=== PATIENT | female | born 1985 | race Caucasian/White ===

== ENCOUNTER 2022-01-02 12:51 | Inpatient (IN) | payer BC ==
[2022-01-02 14:17] LABS: Fetal Membranes Rupture No Membranes Rupture (No Rupture)
[2022-01-02] MEDS ORDERED: Misoprostol 200 MCG TAB PR PRN (14:56)
[2022-01-02] MEDS ORDERED: hydrALAZINE 20 MG/ML VIAL SLOW IVP PRN (14:56)
[2022-01-02] MEDS ORDERED: Promethazine HCl 25 MG/ML VIAL IM PRN ×2 (14:56→22:49)
[2022-01-02] MEDS ORDERED: Methylergonovine 0.2 MG/ML VIAL IM PRN (14:56)
[2022-01-02] MEDS ORDERED: Ondansetron PF 4 MG/2 ML Vial IVP PRN ×2 (14:56→22:49)
[2022-01-02] MEDS ORDERED: Carboprost 250 MCG/ML AMP IM PRN (14:56)
[2022-01-02] MEDS ORDERED: Lidocaine 1% (PF) 30 ML VIAL SC PRN (14:56)
[2022-01-02] MEDS ORDERED: Diphenoxylate HCl/Atropine Tablet PO PRN (14:56)
[2022-01-02] MEDS ORDERED: NS w/ Oxytocin 30 units 500 ML IV SCH ×2 (15:00)
[2022-01-02] MEDS ORDERED: Penicillin G 2.5 MILL.units 2.5 MILL.UNITS in Premix Bag 1 BAG IVPB SCH (15:00)
[2022-01-02] MEDS ORDERED: Penicillin G Potassium 5 MILL.UNITS in Sodium Chloride 0.9% 100 ML IVPB SCH (15:00)
[2022-01-02] MEDS ORDERED: Penicillin G Potassium 5 MILL.UNITS VIAL ONE (16:11)
[2022-01-02 16:34] LABS: Hemoglobin 12.4 g/dL (12.0-15.5); Mean Corpuscular HGB CONC 33.8 g/dL (32.0-36.0); Mean Corpuscular Hemoglobin 29.7 pg (27.0-33.0); Mean Corpuscular Volume 87.8 fl (81.6-98.3); Platelet Count 260 10x3/uL (150-450); RBC Distribution Width 13.2 % (11.5-14.5); Red Blood Cell (RBC) Count 4.18 10x6/uL (3.90-5.03); White Blood Cell (WBC) Count 14.7 10x3/uL (3.5-10.5)
[2022-01-02 17:05] LABS: Syphilis Antibody Nonreactive (Nonreactive); Syphilis Antibody Index 0.04 S/CO (<1.00 Non-Reactive)
[2022-01-02] MEDS ORDERED: Butorphanol Tartrate 1 MG/ML VIAL SLOW IVP PRN (19:45)
[2022-01-02] MEDS: Penicillin G 2.5 MILL.units 2.5 MILL.UNITS in Premix Bag 1 BAG IVPB SCH (20:07)
[2022-01-02 20:10] LABS: SARS-CoV-2 NAA Rapid Test Not Detected (NotDetected)
[2022-01-02] MEDS ORDERED: Fentanyl 2 mcg/Bup 0.1% Cadd 100 ML ONE (21:03)
[2022-01-02 22:26] LABS: HBSAg Index 1.13 S/CO (0-0.99)
[2022-01-02 22:31] LABS: Hep B Surf Ag Reflx Confirmation S/CO (NonReactive)
[2022-01-02] MEDS ORDERED: ePHEDrine Sulfate 50 MG/10 ML VIAL SLOW IVP PRN (22:49)
[2022-01-02] MEDS ORDERED: Naloxone HCl 0.4 mg/ml Vial IVP PRN ×2 (22:49)
[2022-01-02] MEDS ORDERED: diphenhydrAMINE 50 MG/ML VIAL IVP PRN (22:49)
[2022-01-02] MEDS ORDERED: Acetaminophen 325 MG TAB PO PRN (22:49)
[2022-01-02] MEDS ORDERED: Lactated Ringer's 500 ML IV PRN (22:49)
[2022-01-02] MEDS ORDERED: Moisturizing Cream (Eucerin) 113 GM JAR TOP PRN (22:49)
[2022-01-02] MEDS ORDERED: Communication Order-Pharmacy FS SCH (23:00)
[2022-01-02] MEDS ORDERED: Fentanyl 2 mcg/Bupivacaine 0.1% Cassette 100 ML EPIDURAL SCH (23:00)
[2022-01-03] MEDS: Penicillin G 2.5 MILL.units 2.5 MILL.UNITS in Premix Bag 1 BAG IVPB SCH ×6 (00:22→15:08)
[2022-01-03] MEDS ORDERED: Calcium Carbonate 500 MG ChewTAB PO SCH (00:45)
[2022-01-03] MEDS ORDERED: Methylergonovine 0.2 MG/ML VIAL IM PRN (06:54)
[2022-01-03] MEDS ORDERED: Bisacodyl 10 MG SUPP PR PRN (06:54)
[2022-01-03] MEDS ORDERED: hydrALAZINE 20 MG/ML VIAL SLOW IVP PRN (06:54)
[2022-01-03] MEDS ORDERED: Preparation H Ointment 28 GM TUBE PR PRN (06:54)
[2022-01-03] MEDS ORDERED: Milk Of Magnesia 30 ML UDCUP PO PRN (06:54)
[2022-01-03] MEDS ORDERED: Boostrix 0.5 ML (Tdap) VIAL IM ONE (06:54)
[2022-01-03] MEDS: Lactated Ringer's 1,000 ML IV SCH ×3 (07:01→12:06)
[2022-01-03] MEDS: Ibuprofen 800 MG TAB PO SCH ×2 (08:15→17:24)
[2022-01-03] MEDS: Docusate 100 MG CAP PO SCH ×2 (08:16→21:10)
[2022-01-03] MEDS: Ferrous Sulfate 325 MG TAB PO SCH ×2 (08:17→15:08)
[2022-01-04] MEDS: Ibuprofen 800 MG TAB PO SCH ×3 (00:28→17:01)
[2022-01-04] MEDS: Penicillin G 2.5 MILL.units 2.5 MILL.UNITS in Premix Bag 1 BAG IVPB SCH ×2 (01:05→06:30)
[2022-01-04] MEDS: Lactated Ringer's 1,000 ML IV SCH (01:05)
[2022-01-04 04:43] LABS: #Basophils 0.1 10x3/uL (0.0-0.2); #Eosinphils 0.5 10x3/uL (0.0-0.5); %Basophils 0.6 % (0.0-2.0); %Eosinophils 3.8 % (0.0-6.0); %Monocytes 7.8 % (0.0-10.0); Hemoglobin 11.7 g/dL (12.0-15.5); Mean Corpuscular HGB CONC 34.1 g/dL (32.0-36.0); Mean Corpuscular Volume 87.9 fl (81.6-98.3); Mean Platelet Volume 9.5 fl (7.4-10.4); Platelet Count 231 10x3/uL (150-450); RBC Distribution Width 13.6 % (11.5-14.5); White Blood Cell (WBC) Count 13.1 10x3/uL (3.5-10.5)
[2022-01-04] MEDS ORDERED: Simethicone Chewable 80 MG TAB PO SCH (08:45)
[2022-01-04] MEDS: Docusate 100 MG CAP PO SCH ×2 (17:02→20:12)
[2022-01-04] MEDS: Simethicone Chewable 80 MG TAB PO SCH (17:03)
[2022-01-05] MEDS: Ibuprofen 800 MG TAB PO SCH ×3 (00:12→14:08)
[2022-01-05] MEDS: Lactated Ringer's 1,000 ML IV SCH ×4 (01:01→08:39)
[2022-01-05] MEDS: Ferrous Sulfate 325 MG TAB PO SCH ×2 (01:02→08:39)
[2022-01-05] MEDS: Docusate 100 MG CAP PO SCH (08:41)
[2022-01-05] MEDS: Simethicone Chewable 80 MG TAB PO SCH ×2 (08:42→11:51)
[2022-01-05 09:05] VITALS: BP 124/75; TEMP 98.2
[2022-01-06 13:39] LABS: Hep B Surface AG-Rflx Sendout Negative (Negative)
== END 2022-01-05 14:25 | disposition home or self-care (01) | DRG 806 ==
LOC: CSHLD/OP 12:51 → CSHLD 16:05 → CSHPP 01-03 06:49
PROVIDERS: ADMIT Obstetrics & Gynecology; ATTEND Obstetrics & Gynecology
PROC: 10E0XZZ Delivery of Products of Conception, External Approach (ICD-10-PCS; principal; 2022-01-03)
PROC: 0HQ9XZZ Repair Perineum Skin, External Approach (ICD-10-PCS; 2022-01-03)
DX: O42.02 Full-term premature rupture of membranes, onset of labor within 24 hours of rupture (principal); O98.52 Other viral diseases complicating childbirth; Z37.0 Single live birth; Z3A.37 37 weeks gestation of pregnancy; Z20.822 Contact with and (suspected) exposure to COVID-19; B00.9 Herpesviral infection, unspecified; O99.824 Streptococcus B carrier state complicating childbirth; O70.0 First degree perineal laceration during delivery
CPT/HCPCS: 36415; 51702; 84112; 85025; 85027; 86780; 86850; 86900; 86901; 87340; 99285; J0595; J2405; J2540; U0002